=== PATIENT | female | born 1990 | race Asian ===

== ENCOUNTER 2023-02-20 17:09 | Emergency (ER) | payer OTHER ==
[~2023-02-20] VITALS: Ht 162.6 cm; Wt 84.1 kg
[2023-02-20 17:15] VITALS: TEMP 98.3
[2023-02-20 18:51] LABS: BASOPHILS % (AUTO) 0.2 % (0.0-2.0); EOSINOPHILS % (AUTO) 0.1 % (1.0-6.0); HEMATOCRIT 43.7 % (36-46); HEMOGLOBIN 14.1 g/dL (12.0-16.0); LYMPHOCYTES # (AUTO) 1.6 K/uL (1.0-4.8); LYMPHOCYTES % (AUTO) 7.1 % (22.0-44.0); MEAN CORPUSCULAR HEMOGLOBIN 24.9 pg (26.0-34.0); MEAN CORPUSCULAR HGB CONC 32.2 G/dL (31.0-37.0); MEAN CORPUSCULAR VOLUME 77 fL (80-100); MONOCYTES # (AUTO) 0.5 K/uL (0.1-1.0); MONOCYTES % (AUTO) 2.4 % (2.0-9.0); NEUTROPHILS # (AUTO) 20.1 K/uL (1.8-7.7); PLATELET COUNT (AUTO) 374 K/uL (150-450); RED BLOOD CELL COUNT(AUTO) 5.66 MIL/uL (4.00-5.20); RED CELL DISTRIBUTION WIDTH 14.1 % (11.5-14.5); WHITE BLOOD COUNT (AUTO) 22.3 K/uL (4.5-11.0)
[2023-02-20 19:01] LABS: ANION GAP 12 mmol/L (8-16); CALCIUM, TOTAL 10.1 mg/dL (8.8-10.5); CARBON DIOXIDE 26 mmol/L (22-29); CHLORIDE 96 mmol/L (98-107); CREATININE 0.61 mg/dL (0.60-1.30); GLOMERULAR FILTR. RATE CALC > 60 mL/min (>60); GLUCOSE,RANDOM 181 mg/dL (70-110); POTASSIUM 4.1 mmol/L (3.5-5.1); SODIUM SERUM 134 mmol/L (136-145); UREA NITROGEN, BLOOD 14 mg/dL (7-18)
[2023-02-20 19:12] LABS: ALANINE AMINOTRANSFERASE 19 U/L (12-78); ALBUMIN 3.9 g/dL (3.4-5.0); ALKALINE PHOSPHATASE 138 U/L (46-116); ASPARTATE AMINOTRANSFERASE 17 U/L (15-37); BILIRUBIN,TOTAL 0.4 mg/dL (0.1-1.0); HCG,QUANTITATIVE < 1 mIU/mL (0-6); LIPASE 20 U/L (16-77); TOTAL PROTEIN, SERUM 8.7 g/dL (6.4-8.2)
[2023-02-20 19:30] LABS: APPEARANCE,URINE CLEAR (CLEAR); BILIRUBIN,URINE NEGATIVE (NEGATIVE); COLOR,URINE LIGHT YELLOW (YELLOW); GLUCOSE, URINE (UA) NEGATIVE (NEGATIVE); KETONES,URINE TRACE mg/dL (NEGATIVE); LEUKOCYTE ESTERASE ,URINE NEGATIVE (NEGATIVE); NITRATE,URINE NEGATIVE (NEGATIVE); OCCULT BLOOD,URINE NEGATIVE (NEGATIVE); PH,URINE 6.5 (5.0-8.0); SPECIFIC GRAVITIY, URINE 1.021 (1.003-1.030); UROBILINOGEN,URINE <=1.0 mg/dL (<=1.0)
[2023-02-20 19:31] LABS: PROTEIN,URINE NEGATIVE (NEGATIVE)
[2023-02-20 19:44] LABS: NEUTROPHILS % (AUTO) 90.2 % (40.0-70.0); PLATELET MORPHOLOGY COMMENT LARGE PLTS PRESENT
[2023-02-20] MEDS ORDERED: ONDANSETRON HCL 4 MG/2 ML VIAL IVP ONE (20:00)
[2023-02-20] MEDS ORDERED: MORPHINE SULFATE 4 MG/ML SYRINGE IVP ONE (20:00)
[2023-02-20] MEDS ORDERED: SODIUM CHLORIDE 0.9% 1,000 ML IV ONE (20:00)
[2023-02-20] MEDS ORDERED: SODIUM CHLORIDE 0.9% 100 ML ONE (20:16)
[2023-02-20] MEDS ORDERED: IOHEXOL 350 MG/ML 100 ML VIAL ONE (20:16)
[2023-02-20 21:00] VITALS: BP 126/76; PULSE 60; RESP 17
== END 2023-02-20 23:07 | disposition home or self-care (01) ==
LOC: EMS 17:11
DX: K80.20 Calculus of gallbladder without cholecystitis without obstruction (principal); R10.13 Epigastric pain; Z98.890 Other specified postprocedural states
CPT/HCPCS: 99285; 74177; 96374; 76705; 96361; 96375; 80053; 81003; 83690; 84702; 85025; 36415; J2270; J2405; Q9967; J7030; J7050